=== PATIENT | male | born 1995 | race African-American/Black ===

== ENCOUNTER → 2023-11-13 | Outpatient (REF) | payer MEDICAID ==
[2023-11-13 18:30] LABS: BASO # 0.1 10^3/uL (0.0-0.2); BASO % 0.8 % (0.0-1.0); EOS # 0.2 10^3/uL (0.0-0.5); EOS % 2.8 % (0.0-3.0); HEMATOCRIT 45.5 % (42.0-52.0); LYMPH # 2.2 10^3/uL (1.5-5.0); LYMPH % 30.6 % (24.0-44.0); MEAN CORPUSCULAR HEMOGLOBIN 30.3 pg (27.0-33.0); MEAN CORPUSCULAR VOLUME 91.9 fl (80.0-96.0); MONO # 0.6 10^3/uL (0.0-0.8); MONO % 9.1 % (2.0-8.0); NEUTROPHILS % 56.4 % (36.0-66.0); PLATELET COUNT, AUTOMATED 298 10^3/uL (150-450); RED BLOOD COUNT 4.95 10^6/uL (4.30-6.10); WHITE BLOOD COUNT 7.1 10^3/uL (4.0-10.0)
[2023-11-13 18:58] LABS: HEMOGLOBIN A1c 5.4 % (4.0-6.0)
[2023-11-13 19:04] LABS: ALBUMIN 4.1 G/DL (3.2-5.2); ALKALINE PHOSPHATASE 97 U/L (46-116); ALT/SGPT 11 U/L (7.0-40); AST/SGOT 14 U/L (<34); BILIRUBIN,TOTAL 0.5 MG/DL (0.3-1.2); BLOOD UREA NITROGEN 14 MG/DL (9-23); CARBON DIOXIDE LEVEL 29 MMOL/L (20-31); CHLORIDE LEVEL 105 MMOL/L (98-107); CHOLESTEROL LEVEL 168 MG/DL (<200); CHOLESTEROL RISK RATIO 4.38 (<5); CREATININE FOR GFR 0.89 MG/DL (0.70-1.30); GLOMERULAR FILTRATION RATE > 60.0 (>60); GLUCOSE, FASTING 73 MG/DL (60-100); HDL CHOLESTEROL 38.3 MG/DL (>40); LDL CHOLESTEROL 91.1 MG/DL (<100); MAGNESIUM LEVEL 1.9 MG/DL (1.8-2.4); NON-HDL-C 129.7 MG/DL; POTASSIUM SERUM 4.3 MMOL/L (3.5-5.1); SODIUM LEVEL 139 MMOL/L (136-145); TRIGLYCERIDES LEVEL 193 MG/DL (<150)
[2023-11-13 19:11] LABS: THYROID STIMULATING HORMONE 1.057 uIU/ML (0.55-4.78)
[2023-11-13 19:12] LABS: TOTAL 25(OH) VITAMIN D 6.5 NG/ML (20.0-100.0)
[2023-11-13 19:37] LABS: HIV 1&2 SCREEN NEGATIVE (NEGATIVE)
[2023-11-13 19:44] LABS: HEPATITIS C VIRUS ABY INDEX 0.02 INDEX (<0.8)
== END ==
LOC: M LAB REF 18:01
PROVIDERS: ATTEND Physician Assistant
DX: Z11.9 Encounter for screening for infectious and parasitic diseases, unspecified (principal); Z11.3 Encounter for screening for infections with a predominantly sexual mode of transmission; E55.9 Vitamin D deficiency, unspecified; R53.83 Other fatigue

== ENCOUNTER 2024-04-03 19:25 | Emergency (ER) | payer OTHER ==
[~2024-04-03] VITALS: Ht 170.2 cm; Wt 104.0 kg
[~2024-04-03 19:25] MED LIST: MIRA3350 PO
[2024-04-03 19:26] VITALS: BP 122/78; TEMP 99.2; O2SAT 97
[2024-04-03] MEDS ORDERED: VITA200032 (19:33)
[2024-04-03] MEDS ORDERED: IBUPROFEN 600MG TAB PO ONE (22:35)
[2024-04-04] MEDS ORDERED: PRED20TA PO (00:15)
[2024-04-04] MEDS ORDERED: VENTAER INH (00:15)
== END 2024-04-04 01:05 | disposition home or self-care (01) ==
LOC: M ED 19:25
DX: R06.02 Shortness of breath (principal); B34.9 Viral infection, unspecified; F17.290 Nicotine dependence, other tobacco product, uncomplicated; F12.10 Cannabis abuse, uncomplicated; Z79.51 Long term (current) use of inhaled steroids; Z79.52 Long term (current) use of systemic steroids; Z79.899 Other long term (current) drug therapy